=== PATIENT | male | born 1975 | race Two or more races ===

== ENCOUNTER 2020-12-08 20:55 | Inpatient (IN) | payer MEDICAID, OTHER ==
[~2020-12-08] VITALS: Ht 180.3 cm; Wt 79.4 kg
--- NOTE | 2020-12-08 21:00 | NUR ---
BIBRA 86 FOR C/O L SISDED CP RADIATING TO HIS ABD 08/17 SINCE THIS AFTERNOON AND VOMITING BLOOD, PT TO BED 2, AAOX4, DENIES ANY SOB, NOT IN ACUTE DISTRESS, NO SOB, VSS, PENDING MD CARPIO
[2020-12-08] MEDS ORDERED: ONDANSETRON HCL/PF 4 MG/2 ML VIAL ONE (21:24)
[2020-12-08] MEDS ORDERED: PANTOPRAZOLE 40 MG VIAL ONE (21:24)
[2020-12-08] MEDS ORDERED: OCTREOTIDE 100 MCG/ML VIAL ONE (21:25)
[2020-12-08 21:26] LABS: BASOPHILS % (AUTO) 0.3 % (0.0-2.0); EOSINOPHILS % (AUTO) 0.1 % (0.0-6.0); HEMATOCRIT 32 % (39-51); HEMOGLOBIN 10.7 g/dL (13.5-17.5); LYMPHOCYTES # (AUTO) 2.2 /CMM (0.8-4.8); LYMPHOCYTES % (AUTO) 26.6 % (20.0-44.0); MEAN CORPUSCULAR HGB CONC 33 g/dl (31.0-36.0); MEAN CORPUSCULAR VOLUME 84 fL (80-96); MONOCYTES # (AUTO) 0.6 /CMM (0.1-1.30); NEUTROPHILS # (AUTO) 5.5 /CMM (1.8-8.9); PLATELET COUNT (AUTO) 115 /CMM (150-450); RED BLOOD CELL COUNT(AUTO) 3.84 MIL/uL (4.5-6.0); WHITE BLOOD COUNT (AUTO) 8.4 K/uL (4.3-11.0)
[2020-12-08] MEDS ORDERED: OCTREOTIDE 50 MCG/ML AMPUL IV ONE (21:30)
[2020-12-08] MEDS ORDERED: PANTOPRAZOLE 40 MG VIAL IV ONE (21:30)
[2020-12-08] MEDS ORDERED: IV NS 0.9% 1,000 ML BAG IV ONE (21:30)
[2020-12-08] MEDS ORDERED: ONDANSETRON HCL/PF 4 MG/2 ML VIAL IVP ONE (21:30)
[2020-12-08 21:36] LABS: CALCIUM, SERUM 8.1 mg/dL (8.5-10.1); CREATININE 0.7 mg/dL (0.6-1.3); POTASSIUM 2.9 mmol/L (3.5-5.1)
[2020-12-08 21:42] LABS: ALBUMIN 3.1 g/dL (3.4-5.0); BILIRUBIN,DIRECT 0.8 mg/dL (0.0-0.2); BILIRUBIN,TOTAL 1.9 mg/dL (0.2-1.0)
--- NOTE | 2020-12-08 22:00 | NUR ---
PT STATES HAS HX OF ETOH ABUSE. STATES HE HAS LIVER CIRRHOSIS. DR. MAYER AWARE
[2020-12-09] MEDS ORDERED: MAGNESIUM HYDROXIDE 30 ML UDC PO PRN
[2020-12-09] MEDS ORDERED: ONDANSETRON HCL/PF 4 MG/2 ML VIAL IVP PRN
[2020-12-09] MEDS ORDERED: LORAZEPAM INJ 2 MG/ML VIAL IV PRN
[2020-12-09] MEDS ORDERED: IV NS 0.9% 1,000 ML IV SCH
[2020-12-09] MEDS ORDERED: ZOLPIDEM TARTRATE 5 MG TABLET PO PRN
[2020-12-09] MEDS ORDERED: Thiamine 100 MG in IV D5W 50 ML IV SCH ×2
[2020-12-09] MEDS ORDERED: ACETAMINOPHEN 325 MG TABLET PO PRN
[2020-12-09] MEDS ORDERED: MAG HYDROX/AL HYDROX/SIMETH 30 ML UDC PO PRN
[2020-12-09] MEDS ORDERED: PHARMACY ADD 1 AMP MVI TO IVF DAILY ONE BAG XX PRN
[2020-12-09] MEDS ORDERED: Folic acid 1 MG in IV D5W 50 ML IV SCH ×2
[2020-12-09] MEDS ORDERED: HYDROCODONE/APAP 5/325MG TABLET PO PRN
[2020-12-09] MEDS ORDERED: Z GUARD REMEDY 2 OZ OINT TP PRN
--- NOTE | 2020-12-09 | NUR ---
PT ADMIT FOR UGIB. PT STATES HE'S BEEN VOMITTING BLOOD. NO EPISODES NOTED. ADMITTED [facility]. PT NOT IN ACUTE DISTRESS, VSS.
[2020-12-09 00:56] LABS: OCCULT BLOOD STOOL NEGATIVE (NEGATIVE)
[2020-12-09] MEDS ORDERED: Folic acid 1 MG/0.2 ML VIAL ONE (01:50)
[2020-12-09] MEDS ORDERED: Thiamine 100 MG/ML VIAL ONE (01:51)
[2020-12-09] MEDS ORDERED: POTASSIUM CL. PREMIX PERIPHER. 200 ML ONE (01:52)
[2020-12-09] MEDS: POTASSIUM CL. PREMIX PERIPHER. 50 ML IV SCH ×4 (04:00→07:00)
[2020-12-09 05:42] LABS: BASOPHILS % (AUTO) 0.2 % (0.0-2.0); EOSINOPHILS % (AUTO) 0.2 % (0.0-6.0); HEMATOCRIT 31 % (39-51); HEMOGLOBIN 10.2 g/dL (13.5-17.5); LYMPHOCYTES # (AUTO) 2.2 /CMM (0.8-4.8); MEAN CORPUSCULAR HGB CONC 33 g/dl (31.0-36.0); MEAN CORPUSCULAR VOLUME 85 fL (80-96); MONOCYTES # (AUTO) 0.3 /CMM (0.1-1.30); MONOCYTES % (AUTO) 5.4 % (2.0-12.0); NEUTROPHILS # (AUTO) 3.3 /CMM (1.8-8.9); NEUTROPHILS % (AUTO) 57.2 % (43.0-81.0); PLATELET COUNT (AUTO) 87 /CMM (150-450); RED BLOOD CELL COUNT(AUTO) 3.65 MIL/uL (4.5-6.0); WHITE BLOOD COUNT (AUTO) 5.8 K/uL (4.3-11.0)
[2020-12-09 06:11] LABS: CALCIUM, SERUM 7.6 mg/dL (8.5-10.1); CREATININE 0.6 mg/dL (0.6-1.3); MAGNESIUM 1.7 mg/dL (1.8-2.4); PHOSPHORUS 4.1 mg/dL (2.5-4.9); POTASSIUM 3.1 mmol/L (3.5-5.1)
[2020-12-09] MEDS ORDERED: GABA-532 PO (08:06)
[2020-12-09] MEDS ORDERED: FOLI0.4T2 PO (08:06)
[2020-12-09] MEDS ORDERED: THIA100T88 PO (08:06)
[2020-12-09] MEDS ORDERED: BUSP10TA35 PO (08:06)
[2020-12-09] MEDS ORDERED: MULT-447 PO (08:07)
[2020-12-09] MEDS ORDERED: ONDANSETRON HCL/PF 4 MG/2 ML VIAL ONE (08:29)
[2020-12-09] MEDS ORDERED: MVI ADULT 10ML VIAL = 1AMP 10 ML in IV NS 0.9% 1,000 ML IV ONE (09:00)
[2020-12-09] MEDS ORDERED: ONDANSETRON HCL/PF 4 MG/2 ML VIAL IV PRN (09:00)
[2020-12-09] MEDS ORDERED: MORPHINE SULFATE INJ 2 MG/ML DISP.SYRIN ONE (09:08)
[2020-12-09] MEDS: MORPHINE SULFATE INJ 2 MG/ML DISP.SYRIN IV PRN ×2 (09:11→13:07)
--- NOTE | 2020-12-09 09:20 | NUR ---
PATIENT A/OX4, C/O CHEST PAIN, VOMITED X1 AND HEART MONITOR SHOWED TACHYCARDIA AT 160S. DR. ARROYO MADE AWARE IMMEDIATELY. RECEIVED ORDER FOR EKG STAT.
--- NOTE | 2020-12-09 09:27 | NUR ---
EKG DONE AND SENT RESULT TO DR. ARROYO. MORPHINE AND ZOFRAN GIVEN TO PATIENT. ALSO, POTASSIUM REPLETED, REQUESTED POTASSIUM LEVEL PRIOR TO ADMINISTRATION THE NEXT ORDERED DOSE.
[2020-12-09] MEDS ORDERED: POTASSIUM CL. PREMIX PERIPHER. 50 ML IV SCH (09:30)
--- NOTE | 2020-12-09 09:42 | NUR ---
HEART RATE IMPROVED. HR 90-100.
[2020-12-09] MEDS ORDERED: Magnesium 1GM/D5W 100ML PREMIX 100 ML IV ONE ×2 (09:52→11:13)
[2020-12-09] MEDS ORDERED: IV NS 0.9% 1,000 ML IV PRN (10:00)
[2020-12-09] MEDS: Magnesium 1GM/D5W 100ML PREMIX 100 ML IV SCH ×2 (10:15→11:16)
[2020-12-09] MEDS ORDERED: NITROGLYCERIN 0.4 MG/TAB BOTTLE ONE (11:02)
[2020-12-09] MEDS ORDERED: POTASSIUM CL. PREMIX PERIPHER. 50 ML ONE (11:13)
--- NOTE | 2020-12-09 11:25 | NUR ---
DR. ARROYO WAS AT BEDSIDE, GAVE VERBAL ORDER FOR NITRO TAB SUBLINGUAL FOR CHEST PAIN. REPEAT K LEVEL 3.3, PER DR. ARROYO, OK TO GIVE 4 BAGS OF POTASSIUM.
--- NOTE | 2020-12-09 11:26 | NUR ---
BED 315-2
[2020-12-09] MEDS ORDERED: NITROGLYCERIN 0.4 MG/TAB BOTTLE SL PRN (11:30)
[2020-12-09 11:31] VITALS: BP 115/80
--- NOTE | 2020-12-09 11:36 | NUR ---
REPORT GIVEN TO AWILDA CHAPPELL, ENDORSED THE POTASSIUM ORDER.
--- NOTE | 2020-12-09 12:15 | NUR ---
Patient transferred to room 315-1 via acls protocol. No distress noted. Endorsed potassium to Gerbie.
--- NOTE | 2020-12-09 12:20 | NUR ---
RN NOTES BEDSIDE ENDORSEMENT DONE. PATIENT ARRIVED AT UNIT AT ROOM 315 VIA [facility]ITAL BED ACCOMPANIED BY 2 ER NURSES.
[2020-12-09 12:29] LABS: LYMPHOCYTES % (MANUAL) 37 % (16-48); MONOCYTES % (MANUAL) 4 % (0-11.0); NEUTROPHILS % (MANUAL) 59 (42-76)
--- NOTE | 2020-12-09 13:33 | NUR ---
RN NOTES PATIENT INFORMED NURSE THAT HE WANTS TO LEAVE AMA BECAUSE HE IS CONCERNED FOR HIS MOTHER. PATIENT IS A/O X4 AND ABLE TO MAKE NEEDS KNOWN AND IS AWARE. DR. ARROYO MADE AWARE OF PATIENT WANTING TO LEAVE AND AMA AND AGREED IN SPITE OF RISKS.
--- NOTE | 2020-12-09 14:00 | NUR ---
RN NOTES PATIENT DISCHARGE AMA TODAY. AMA FORM SIGNED BY PATIENT, AWARE AND UNDERSTANDS RISKS. NAME ARMBAND AND IV LINES REMOVED. PER PATIENT, HIS FRIEND WILL PICK HIM UP. PATIENT REFUSED EXITCARE DISCHARGE INSTRUCTIONS, STATED THAT HE HAS HIS DOCTOR AT [facility] TO SEE. CHARGE NURSE AND MD AWARE OF DISCHARGE AMA.
--- NOTE | 2020-12-09 14:41 | NUR ---
RN NOTES INCIDENT REPORT DONE, REFERENCE #[id number]
== END 2020-12-09 14:30 | disposition left against medical advice (07) | DRG 253 ==
LOC: ER 21:02 → TRANSITION 23:25 → TELE 12-09 11:36
PROVIDERS: ADMIT Family Medicine; ATTEND Internal Medicine
DX: K92.2 Gastrointestinal hemorrhage, unspecified (principal); K70.30 Alcoholic cirrhosis of liver without ascites; E44.1 Mild protein-calorie malnutrition; F10.129 Alcohol abuse with intoxication, unspecified; Z86.73 Personal history of transient ischemic attack (TIA), and cerebral infarction without residual deficits; I10 Essential (primary) hypertension; Y90.8 Blood alcohol level of 240 mg/100 ml or more; E87.6 Hypokalemia; D63.8 Anemia in other chronic diseases classified elsewhere; R74.8 Abnormal levels of other serum enzymes; E88.09 Other disorders of plasma-protein metabolism, not elsewhere classified; Z20.822 Contact with and (suspected) exposure to COVID-19; I85.10 Secondary esophageal varices without bleeding
CPT/HCPCS: 36415; 71045-TC; 80048-TC; 80061-TC; 80076-TC; 82272-TC; 83690-TC; 83735-TC; 84100-TC; 84132-TC; 84484-TC; 85025-TC; 85730-TC; 86850-TC; 87081-TC; C9113; C9803; G0378; G0480; J2060; J2270; J2354; J2405; J3411; J3475; J3480; J3490; J7030; J7060